=== PATIENT | male | born 1955 | race Caucasian/White ===

== ENCOUNTER 2017-07-19 22:08 | Emergency (ER) | payer SELFPAY, BC | END 2017-07-19 22:30 | disposition left against medical advice (07) | LOC: E/R 22:30 | DX: Z53.21 Procedure and treatment not carried out due to patient leaving prior to being seen by health care provider (principal) ==

== ENCOUNTER 2017-07-20 06:20 | Inpatient (IN) | payer MEDICARE, BC ==
[2017-07-20] MEDS ORDERED: NITROGLYCERIN (SL) 0.4 MG TAB SL (07:00)
[2017-07-20] MEDS: NITROGLYCERIN 2% 1 GM OINT PKT TD (07:45)
[2017-07-20] MEDS: ASPIRIN 81 MG TAB PO ×2 (07:45→09:00)
[2017-07-20 08:04] LABS: ADD MAN DIFF? NO
[2017-07-20 08:13] LABS: BASOPHIL # 0.1 10^3/ul (0.0-0.1); BASOPHILS % 0.5 % (0.0-2.0); EOSINOPHILS # 0.2 10^3/ul (0.0-0.5); EOSINOPHILS % 1.8 % (0.0-7.0); HEMATOCRIT 42.2 % (42.0-52.0); HEMOGLOBIN 14.2 g/dl (14.0-18.0); LYMPHOCYTES # 2.5 10^3/ul (0.8-2.9); LYMPHOCYTES % 19.2 % (15.0-51.0); MEAN CORPUSCULAR HEMOGLOBIN 29.1 pg (29.0-33.0); MEAN CORPUSCULAR HGB CONC 33.6 g/dl (32.0-37.0); MEAN CORPUSCULAR VOLUME 86.5 fl (82.0-101.0); MEAN PLATELET VOLUME 9.8 fl (7.4-10.4); MONOCYTE # 1.2 10^3/ul (0.3-0.9); MONOCYTES % 8.9 % (0.0-11.0); PLATELET COUNT 195 10^3/UL (140-415); RED BLOOD COUNT 4.88 10^6/ul (4.70-6.10); RED CELL DISTRIBUTION WIDTH 12.7 % (11.5-14.5)
[2017-07-20 08:28] LABS: ANION GAP 15 (8-16); BLOOD UREA NITROGEN 21 mg/dl (7-20); CALCIUM 10.5 mg/dl (8.4-10.2); CARBON DIOXIDE 30 mmol/L (21-31); CHLORIDE 103 mmol/L (97-110); CREATININE 0.88 mg/dl (0.61-1.24); GLUCOSE 137 mg/dl (70-220); POTASSIUM 3.8 mmol/L (3.5-5.1); SODIUM 144 mmol/L (135-144)
[2017-07-20 08:39] LABS: TROPONIN-I 0.019 ng/ml (0.00-0.12)
[2017-07-20] MEDS: AMLODIPINE 10 MG TAB PO (09:00)
[2017-07-20] MEDS ORDERED: ONDANSETRON 4 MG INJ IV (10:00)
[2017-07-20] MEDS: METOPROLOL (XL) 25 MG TAB PO (10:00)
[2017-07-20] MEDS ORDERED: ACETAMINOPHEN 325 MG TAB PO (10:00)
[2017-07-20] MEDS ORDERED: LIDOCAINE 100 MG SYRINGE (12:51)
[2017-07-20] MEDS ORDERED: IODIXANOL LOCM 100 ML BTL (12:51)
[2017-07-20] MEDS ORDERED: NITROGLYCERIN (IC) 100 MCG/ML INJ (13:04)
[2017-07-20] MEDS ORDERED: MIDAZOLAM 1 MG/ML 2 ML INJ (13:04)
[2017-07-20] MEDS ORDERED: VERAPAMIL 5 MG INJ (13:04)
[2017-07-20] MEDS ORDERED: HEPARIN 1000 UNITS/ML 10 ML INJ (13:04)
[2017-07-20] MEDS ORDERED: FENTAnyl 50 MCG/ML VIAL (13:04)
[2017-07-20] MEDS ORDERED: SOD CHLORIDE 0.9% 1,000 ML IV (13:49)
[2017-07-20] MEDS ORDERED: hydrALAzine 20 MG INJ IV (14:00)
[2017-07-20 15:01] LABS: CREATINE KINASE 41 IU/L (23-200)
[2017-07-20 15:13] LABS: CK INDEX 3.5
[2017-07-20 15:26] LABS: CK-MB 1.44 ng/ml (0.0-2.4); TROPONIN-I < 0.012 ng/ml (0.00-0.12)
[2017-07-20] MEDS ORDERED: ATORVASTATIN 40 MG TAB PO (21:00)
== END 2017-07-20 16:28 | disposition home or self-care (01) | DRG 282 ==
LOC: E/R 06:20 → REC 09:55
PROC: 4A023N7 Measurement of Cardiac Sampling and Pressure, Left Heart, Percutaneous Approach (ICD-10-PCS; principal; 2017-07-20 12:58)
PROC: B2011ZZ Plain Radiography of Multiple Coronary Arteries using Low Osmolar Contrast (ICD-10-PCS; 2017-07-20 12:58)
PROC: B2051ZZ Plain Radiography of Left Heart using Low Osmolar Contrast (ICD-10-PCS; 2017-07-20 12:58)
DX: I21.A1 Myocardial infarction type 2 (principal); E11.9 Type 2 diabetes mellitus without complications; I10 Essential (primary) hypertension; Z85.038 Personal history of other malignant neoplasm of large intestine
CPT/HCPCS: 36415; 71045; 80048; 82550; 82553; 82962; 84484; 85025; 93005; 93458; 99285-25